=== PATIENT | male | born 2000 | race Caucasian/White ===

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

== ENCOUNTER 2020-10-28 09:07 | Emergency (ER) | payer OTHER, SELFPAY ==
--- NOTE | 2020-10-28 09:25 | HMH.EDUTC ---
[facility] [place] Impression: Exposure to COVID-19 virus Disposition: Home, Self-Care Condition on Discharge: Good Instructions: Preventing the Spread of Coronavirus Discharge Instructions Additional Instructions: Drink plenty of fluids. Take tylenol for pain or fever. Return if you begin to have difficulty breathing. Follow up with your regular doctor. GO TO THE ER FOR ANY WORSENING SYMPTOMS Referrals: Gilberto Camacho MD [Primary Care Provider] - Time of Disposition: 09:26 Medical Decision Making - Medical Records Medical records reviewed: No: I reviewed the patient's medical records. - Elmer Inquiry Pt receiving controlled substance: No Vital Signs: 10/28/20 09:33 10/28/20 09:43 Temperature 98 F 98.2 F Temperature Source Oral Oral Pulse Rate 74 Pulse Rate [Right] 71 Respiratory Rate 16 16 Blood Pressure 115/64 Blood Pressure [Right Arm] 110/50 L Blood Pressure Mean [Right Arm] 70 Blood Pressure Source Automatic Cuff Blood Pressure Source [Right Arm] Automatic Cuff Blood Pressure Position Sitting Blood Pressure Position [Right Arm] Sitting 02 Sat by Pulse Oximetry 98 Oxygen Delivery Method Room Air Room Air Orders (Tests/Meds): ORDERS Category Date Time Status Covid-19 Nasal PCR ([facility]) Routine Lab 10/28/20 09:13 Ordered [facility] [place] - General Stated complaint: Covid exposure Time Seen by Provider: 10/28/20 09:25 - History of Present Illness Provider Complaint: He was exposed to covid by a friend several days ago. He denies any symptoms. - Related Data Previous Rx's Medication Instructions Recorded triamcinolone acetonide 0.5 % 1 applic TOPICAL BID 7 Days #15 g 03/17/19 topical cream Allergies Allergy/AdvReac Type Severity Reaction Status Date / Time No Known Allergies Allergy Unverified 03/17/19 12:38 [facility] History - Hepatitis A Screen Attestation statement:: This patient has been screened for Hepatitis A risk factors. I have reviewed the patient's past medical history: Yes Other Surgeries: Yes: No Previous Surgery Amputation: No Fractures: No - Social History Smoking Status: Never smoker Alcohol Intake: never Substance Use Type: denies use Occupational Status: employed Housing: house Household Members: family Family Hx:: No significant family history ROS Obtained: Yes All systems reviewed & no additional complaints - Constitutional Constitutional: Reports system reviewed and no additional complaints, except as docu - Eyes Eyes: Reports system reviewed and no additional complaints, except as docu - ENT Ears, Nose, Mouth, and Throat: Reports system reviewed and no additional complaints, except as docu - Cardiovascular Cardiovascular: Reports system reviewed and no additional complaints, except as docu - Respiratory Respiratory: Yes system reviewed and no additional complaints, except as docu - Gastrointestinal Gastrointestingal: Reports: system reviewed and no additional complaints, except as docu Physical Exam - General General appearance: alert, in no apparent distress - Head Head exam: atraumatic, normocephalic, normal inspection - Eye Eye exam: Present: normal appearance, PERRL, EOMI - ENT ENT exam: Present: normal exam, normal oropharynx, mucous membranes moist, TM's normal bilaterally, normal external ear exam - Neck Neck exam: Present: normal inspection, full ROM, trachea midline. Absent: meningismus, lymphadenopathy - Chest Chest inspection: Present: normal inspection, symmetric chest wall rise. Absent: tenderness - Respiratory Respiratory exam: Present: normal lung sounds bilaterally. Absent: respiratory distress - Cardiovascular Cardiovascular exam: Present: regular rate, normal rhythm. Absent: JVD - Abdominal Exam Abdominal exam: Present: soft, normal bowel sounds. Absent: distention, tenderness, guarding - Extremities Exam Extremities exam: Present: normal inspecti
[2020-10-28 09:33] VITALS: BP 110/50; PULSE 71; RESP 16; TEMP 36.6; O2SAT 98; BMI 20.9
[2020-10-28 09:43] VITALS: BP 115/64; PULSE 74; RESP 16; TEMP 36.8; O2SAT 98
== END 2020-10-28 09:44 | disposition home or self-care (01) ==
PROVIDERS: Emergency Provider Nurse Practitioner Family; PCP Internal Medicine Adolescent Medicine
DX: Z20.828 Contact with and (suspected) exposure to other viral communicable diseases (principal)
CPT/HCPCS: 99201; U0003

== ENCOUNTER 2020-11-12 15:13 | Emergency (ER) | payer OTHER, SELFPAY ==
[2020-11-12 15:21] VITALS: BP 122/73; PULSE 60; RESP 19; TEMP 36.6; O2SAT 98; BMI 21.3
--- NOTE | 2020-11-12 15:27 | HMH.EDUTC ---
[facility] [place] Impression: Exposure to COVID-19 virus Disposition: Home, Self-Care Condition on Discharge: Good Instructions: Preventing the Spread of Coronavirus Discharge Instructions Additional Instructions: *Monitor Temp, Over the counter Motrin or Tylenol as directed/as needed Tylenol every 4 hours and Motrin every 6 hours (as long as your family doctor has told you that you can take it) for fever or pain. and straight to ER if unable to lower temp less than 101.0 after medication given *Warm salt water gargles may help to soothe the throat *Throat Lozenges *Warm fluids like tea with honey may help to soothe the throat *Sleep elevated *Humidifier/Vaporizer Follow up IMMEDIATELY for new or worsening symptoms or no Noticeable improvement over the next 48-72 hours. 911 for difficulty breathing or swallowing You were tested for today for COVID19 your test result should be back in the next 24-48 hours, you may call to the [facility] to see if your test results are back in the next 48 hours [phone] [facility] hours are 9am-9pm You was given a handout with instructions for Self Quarantine and Self isolation for while you wait on test results and what to do if they are positive If you are positive the Health Dept will be contacting you also Referrals: Gilberto Camacho MD [Primary Care Provider] - As needed Forms: Work/School Release Time of Disposition: 15:30 Medical Decision Making - Elmer Inquiry Pt receiving controlled substance: No Elmer was queried for this patient: No Vital Signs: 11/12/20 15:21 Temperature 97.8 F Temperature Source Oral Pulse Rate [Radial] 60 Respiratory Rate 19 Blood Pressure [Right Arm] 122/73 Blood Pressure Mean [Right Arm] 89 Blood Pressure Source [Right Arm] Automatic Cuff Blood Pressure Position [Right Arm] Sitting 02 Sat by Pulse Oximetry 98 Oxygen Delivery Method Room Air Orders (Tests/Meds): ORDERS Category Date Time Status Covid-19 Nasal PCR [facility] Stat Lab 11/12/20 15:19 [place] [facility] [place] - General Stated complaint: covid test Time Seen by Provider: 11/12/20 15:27 Mode of Arrival: Ambulatory Source of Information: Patient Limitations: No Limitations Description of Symptoms (Recalled from Triage Doc. by RN): covid test HEENT Symptoms (Recalled from RN notes): No Resp Symptoms (Recalled from RN notes): No Skin Symptoms (Recalled from RN notes): No MS Symptoms (Recalled from RN notes): No Functional Status (Recalled from RN notes): wnl - History of Present Illness Provider Complaint: Patient state that he lives with his sister and she recently tested positive for COVID States that he is not having any symtpoms but wanted to come in and get checked and tested for COVID - Related Data Previous Rx's Medication Instructions Recorded triamcinolone acetonide 0.5 % 1 applic TOPICAL BID 7 Days #15 g 03/17/19 topical cream Allergies Allergy/AdvReac Type Severity Reaction Status Date / Time No Known Allergies Allergy Unverified 03/17/19 12:38 - Worker's Comp Is this a Worker's Comp case?: No [facility] History - Hepatitis A Screen Drug use history?: No High risk sexual behaviors?: No History of sexually transmitted infection?: No Currently employed?: No Childcare worker?: No Do you have indoor plumbing?: Yes Do you have electricity?: Yes Attestation statement:: This patient has been screened for Hepatitis A risk factors. I have reviewed the patient's past medical history: Yes Other Surgeries: Yes: No Previous Surgery Amputation: No Fractures: No - Social History Smoking Status: Never smoker Alcohol Intake: never Substance Use Type: denies use Occupational Status: employed Housing: house Household Members: family Family Hx:: No significant family history ROS Obtained: Yes All systems reviewed & no additional complaints, Yes Systems reviewed as appropriate & no additional complaints - Constitutional Constitutional: Reports
[2020-11-12 15:35] VITALS: BP 122/73; PULSE 60; RESP 19; TEMP 36.6; O2SAT 100
[2020-11-14 09:47] LABS: Covid-19 Nasal PCR Sendout UK Not Detected
== END 2020-11-12 15:35 | disposition home or self-care (01) ==
PROVIDERS: Emergency Provider Nurse Practitioner; PCP Internal Medicine Adolescent Medicine
DX: Z20.828 Contact with and (suspected) exposure to other viral communicable diseases (principal)
CPT/HCPCS: 99201; U0003

== ENCOUNTER 2021-07-25 20:45 | Emergency (ER) | payer OTHER, SELFPAY ==
[2021-07-25 21:10] VITALS: BP 122/74; PULSE 80; RESP 14; TEMP 36.9; O2SAT 97; BMI 20.3
[2021-07-25 21:18] VITALS: BP 122/74; PULSE 88; RESP 14; TEMP 36.8
--- NOTE | 2021-07-25 21:44 | HMH.EDUTC ---
[facility] [place] Disposition Clinical Impression: Chest wall pain, Viral syndrome Disposition: Home, Self-Care Condition on Discharge: Good Instructions: DI for Atypical Chest Pain, DI for Viral Syndrome Additional Instructions: Drink plenty of fluids. Take the medication as directed. Return if you begin to have difficulty breathing or worsening symptoms. Continue to Follow up with your regular doctor. GO TO THE ER FOR ANY WORSENING SYMPTOMS Quarantine until you know the results of your covid-19 test. If it is positive, the health department should call you and give you further instructions about your length of Quarantine and other things. Notify your school or workplace of your results and follow their instructions regarding return to work/school. Prescriptions: predniSONE [Prednisone 20mg Tab] 20 mg PO BID 4 Days #8 tab Transmission Status: Received by [id number] Referrals: Gilberto Camacho MD [Primary Care Provider] - Forms: Work/School Release Time of Disposition: 21:46 Medical Decision Making - Medical Records Medical records reviewed: No: I reviewed the patient's medical records. - Elmer Inquiry Pt receiving controlled substance: No Vital Signs: 07/25/21 21:10 07/25/21 21:18 Temperature 98.5 F 98.2 F Temperature Source Oral Pulse Rate 88 Pulse Rate [Left] 80 Respiratory Rate 14 14 Blood Pressure 122/74 Blood Pressure [Right Arm] 122/74 Blood Pressure Mean [Right Arm] 90 02 Sat by Pulse Oximetry 97 Orders (Tests/Meds): ORDERS Category Date Time Status Covid-19 Nasal PCR ([facility]) Routine Lab 07/25/21 21:10 Received [facility] [place] HPI - General Stated complaint: covid test Time Seen by Provider: 07/25/21 21:15 Mode of Arrival: Ambulatory Source of Information: Patient Limitations: No Limitations Description of Symptoms (Recalled from Triage Doc. by RN): pt c/o back ache, fever, soa, and soreness of the chest. HEENT Symptoms (Recalled from RN notes): No Resp Symptoms (Recalled from RN notes): Yes (soa and tightness in his lungs) Skin Symptoms (Recalled from RN notes): No MS Symptoms (Recalled from RN notes): No Functional Status (Recalled from RN notes): na - History of Present Illness Provider Complaint: He states that he has had an area on his left chest that has hurt and been tender to touch at times for the past 2 weeks or so. He denies any known injury. He also states that for the past 2 days he has felt very tired so he would like a covid test. - Related Data Previous Rx's Medication Instructions Recorded triamcinolone acetonide 0.5 % 1 applic TOPICAL BID 7 Days #15 g 03/17/19 topical cream predniSONE [Prednisone 20mg 20 mg PO BID 4 Days #8 tab 07/25/21 Tab] Allergies Allergy/AdvReac Type Severity Reaction Status Date / Time No Known Allergies Allergy Unverified 03/17/19 12:38 - Worker's Comp Is this a Worker's Comp case?: No [facility] History - Hepatitis A Screen Drug use history?: No High risk sexual behaviors?: No History of sexually transmitted infection?: No Currently employed?: No Childcare worker?: No Do you have indoor plumbing?: Yes Do you have electricity?: Yes Attestation statement:: This patient has been screened for Hepatitis A risk factors. I have reviewed the patient's past medical history: Yes Other Surgeries: Yes: No Previous Surgery Amputation: No Fractures: No - Social History Smoking Status: Never smoker Alcohol Intake: never Substance Use Type: denies use Occupational Status: employed Housing: house Household Members: family Family Hx:: No significant family history ROS Obtained: Yes All systems reviewed & no additional complaints - Constitutional Constitutional: Denies chills, Denies fever(s) - Eyes Eyes: Denies eye discharge - ENT Ears, Nose, Mouth, and Throat: Denies dizziness, Denies otalgia, Denies sore throat - Cardiovascular Cardiovascular: Reports as per HPI, Reports chest
== END 2021-07-25 21:55 | disposition home or self-care (01) ==
PROVIDERS: Emergency Provider Nurse Practitioner Family; PCP Internal Medicine Adolescent Medicine
DX: R07.89 Other chest pain (principal); B34.9 Viral infection, unspecified; Z20.822 Contact with and (suspected) exposure to COVID-19
CPT/HCPCS: 99202; G0463; U0003

== ENCOUNTER → 2021-08-23 09:34 | Outpatient (CLI) | payer OTHER, SELFPAY ==
[2021-08-23 09:56] LABS: Basophils # 0.1 K/mm3 (0-0.2); Basophils % 1.7 % (0.1-2.0); Eosinophils # 0.2 K/mm3 (0.0-0.4); Eosinophils % 4.3 % (0.1-12.0); Hematocrit 47.9 % (42.0-52.0); Hemoglobin 15.9 g/dL (14.1-18.0); Lymphocytes # 1.7 K/mm3 (0.7-4.5); Lymphocytes % 34.2 % (10-50); Mean Corpuscular HGB Conc 33.2 g/dL (31.8-35.4); Mean Corpuscular Hemoglobin 30.2 pg (27.0-31.2); Mean Corpuscular Volume 90.8 fl (80-94); Mean Platelet Volume 7.4 fl (7.4-10.4); Monocytes # 0.4 K/mm3 (0.1-1.0); Monocytes % 7.7 % (1.7-9.3); Neutrophils # 2.5 K/mm3 (1.8-7.8); Neutrophils % 52.1 % (37.0-80.0); Platelet Count 280 K/mm3 (142-424); Red Blood Count 5.28 M/mm3 (4.60-6.20); Red Cell Distribution Width 13.4 % (11.5-17.5); White Blood Count 4.9 K/mm3 (4.8-10.8)
[2021-08-23 10:55] LABS: Chloride 101 mmol/L (98-107)
[2021-08-23 10:56] LABS: Potassium 4.8 mmoL/L (3.5-5.1); Sodium 142 mmol/L (136-145)
[2021-08-23 10:58] LABS: Alanine Aminotransferase 20 U/L (12-78); Anion Gap 15.8 mEq/L (5-15); Aspartate Amino Transferase 29 U/L (17-59); Blood Urea Nitrogen 15 mg/dl (9-20); Carbon Dioxide 30 mmol/L (22.0-30.0); Estimated Glomerular Filt Rate 106 ml/min (>60); GFR (African American) 128 ML/MIN (>60)
[2021-08-23 10:59] LABS: Albumin Level 5.1 g/dl (3.5-5.0); Alkaline Phosphatase 68 U/L (38-126); Chol/HDL Ratio 2.1 (1-3.5); Cholesterol 143 mg/dl (140-200); Glucose 97 mg/dl (74-100); HDL Cholesterol 68 mg/dl (40-60); Triglycerides 83 mg/dl (30-150); VLDL Cholesterol 17 mg/dL (0-40)
[2021-08-23 11:10] LABS: Direct LDL Cholesterol 57.89 mg/dL (100-129)
[2021-08-23 11:18] LABS: Free Thyroxine Index 3.2 ug/dL (5.93-13.13); Triiodothryronine (T3) Uptake 29 % (23.5-40.5)
[2021-08-23 11:32] LABS: Thyroid Stimulating Hormone 0.61 uIU/mL (0.465-4.68)
== END ==
PROVIDERS: Visit Provider Urology
DX: R06.00 Dyspnea, unspecified (principal); R07.89 Other chest pain; R94.31 Abnormal electrocardiogram [ECG] [EKG]
CPT/HCPCS: 36415; 80048; 80061; 80076; 84436; 84443; 84479; 85025

== ENCOUNTER → 2021-08-30 07:53 | Outpatient (CLI) | payer OTHER, SELFPAY ==
--- NOTE | 2021-08-30 07:55 | CA_ITS ---
APPROVED REPORT EXAM: Comprehensive 2D, Doppler, and color-flow Echocardiogram Radiochemical Technician: Connie Jones CRT Ht: 5 ft 6 in Wt: 125lbs BSA: 1.64 BP: 124/81 mmHg Indications: Chest Pain, Shortness of Breath 2D Dimensions LVOT 1.88 cm (M/F) 1.5-2.5 LA Volume 18.30 mL LA Volume Index 11.20 mL/m2 (M/F) 16-34 M-Mode Dimensions RVDd 2.62 cm (0.9-2.6) LA Diam 2.43 cm (1.9-4.0) LVDd 4.31 cm (3.5-5.7) Ao Diam 3.38 cm (2.0-3.7) LVDs 2.94 cm (3.5-5.7) IVSd 1.02 cm (0.6-1.1) PWd 0.88 cm (0.6-1.1) EF (Teich) 60.10% FS 31.80% EDV (Teich) 83.50 mL ESV (Teich) 33.30 mL LV Diastology E Decel Time 200.00 (160-240 msec) E/A Ratio 1.24 Aortic Valve AO Peak GR. 6.90 mmHg Mitral Valve MV E Max Scottie. 98.00 (40-130 cm/s) MV A Velocity 79.00 (40-130 cm/s) E/A Ratio 1.24 MV Decel. Time 200.00 (160-240 ms) MV PHT 59.00 ms Pulmonary Valve PV Peak Velocity 123.00 (50-150 cm/s) Tricuspid Valve TR P. Velocity 188.00 cm/s RAP Estimate 10.00 mmHg RVSP 24.10 mmHg Left Ventricle Left atrium is normal size, left ventricle is normal size, there is no concentric left ventricular hypertrophy, visually estimated ejection fraction 55% with no regional wall motion abnormality, diastolic parameters within normal range, there is no tissue Doppler performed. Right Ventricle Right atrium and right ventricle are normal size and contractility. Aortic Valve Aortic valve is grossly normal, there is no aortic stenosis or aortic insufficiency. Mitral Valve Mitral valve is grossly normal, there is trace mitral regurgitation. Tricuspid Valve Tricuspid valve grossly normal, there is trace tricuspid regurgitation, tricuspid regurgitation jet velocity is inadequate for calculation of the right ventricular systolic pressure. Pulmonic Valve Pulmonic valve is poorly visualized. Great Vessels Aortic root is normal size. Inferior vena cava is normal size with normal inspiratory collapse. Pericardium No significant pericardial effusion noted. Conclusion 1. Normal left ventricular size, preserved left ventricular systolic function, visually estimated ejection fraction 55% with no regional wall motion abnormality, diastolic parameters are within normal range. 2. Trace mitral and tricuspid regurgitation. 3. No significant pericardial effusion noted. Electronically signed by : Avi Go MD 08/31/2021 13:19:11
--- NOTE | 2021-08-30 07:55 | CA_ITS ---
APPROVED REPORT Exam: Exercise Treadmill Technologist: Sujey Mccoy, Ht: 5 ft 6 in Wt: 124 lbs BSA: 1.63 m2 HR: 71 bpm BP: 126/76 mmHg Medical History Medications: Pantoprazole,,,,, TriaMcinalone Acetonide,,,,, Stress Test Details Test: Kenny HR Resting HR: 81 bpm Max Heart Rate (APMHR): 198.096907 bpm Max HR Achieved: 183 bpm Target HR (85% APMHR): 168.308698 bpm % of APMHR: 92.42 Recovery HR: 110 bpm BP Resting BP: 139/86 mmHg Max BP: 180/87 mmHg Recovery BP: 151.0/85.0 mmHg ECG Resting ECG: NSR, early repolarization changes, voltage criteria for LVH Clinical Exercise duration: 13:03 min Highest Stage Achieved: Exercise capacity: 14.8 METs Stress ECG Conclusion Exercised 13:03 on Kenny Protocol Max HR: 183 % of PM: 92% Max BP: 180/87 METs: 14.8 Test stopped due to: SOA, Fatigue Symptoms: SOA, mild chest discomfort. Arrythmias/Ectopy: None. ST-T Changes: within vikram ST response to exercise. Conclusion: Normal GXT. GXT only (no imaging). Test Summary REST . . . . . . . Sitting REST . . . . . . . Standing REST 03:32 0.0 0.0 81 . 139/ 86 . . Stage 1 01:00 10.0 1.7 92 . . . . Stage 1 02:00 10.0 1.7 101 . . . . Stage 1 03:00 10.0 1.7 97 . 116/ 70 . . Stage 2 01:00 12.0 2.5 97 . . . . Stage 2 02:00 12.0 2.5 109 . . . . Stage 2 03:00 12.0 2.5 105 . 116/ 60 . . Stage 3 01:00 14.0 3.4 117 . . . . Stage 3 02:00 14.0 3.4 119 . . . . Stage 3 03:00 14.0 3.4 121 . 134/ 60 . . Stage 4 01:00 16.0 4.2 138 . . . . Stage 4 02:00 16.0 4.2 156 . . . . Stage 4 03:00 16.0 4.2 170 . . . . Stage 5 01:00 18.0 5.0 181 . . . . Stage 5 01:03 18.0 5.0 182 . . . Stop exercise at 13:03 RECOVERY 01:00 0.0 0.0 154 . . . . RECOVERY 02:00 0.0 0.0 137 . 168/ 80 . . RECOVERY 03:00 0.0 0.0 134 . 180/ 87 . . RECOVERY 04:00 0.0 0.0 119 . 176/ 89 . . RECOVERY 05:00 0.0 0.0 118 . 176/ 89 . . RECOVERY 06:00 0.0 0.0 118 . 164/ 87 . . RECOVERY 07:00 0.0 0.0 110 . 164/ 87 . . RECOVERY 08:00 0.0 0.0 116 . 164/ 87 . . RECOVERY 08:22 0.0 0.0 110 . 164/ 87 . . Electronically signed by : Avi Go MD 08/31/2021 10:18:43
--- NOTE | 2021-08-30 09:06 | US_ITS ---
PROCEDURE: US THYROID CLINICAL INDICATION: dyspnea, chest pain COMPARISON: No exams were available for comparison FINDINGS: Right lobe: 4.5 x 1.6 x 1.9 cm. Homogeneous echogenicity. No discrete nodule. Left lobe: 4.1 x 1.2 x 1.5 cm. Homogeneous echogenicity. No discrete nodule. Isthmus: Unremarkable Additional findings: IMPRESSION: Unremarkable thyroid ultrasound Dictated by: Tramaine Wilson MD 08/30/2021 17:37 Tramaine Wilson MD in [place] 08/30/2021 17:37
== END ==
PROVIDERS: PCP Internal Medicine Adolescent Medicine; Visit Provider Urology
DX: R06.00 Dyspnea, unspecified (principal); R07.89 Other chest pain; R94.31 Abnormal electrocardiogram [ECG] [EKG]
CPT/HCPCS: 76536; 93017; 93306

== ENCOUNTER → 2021-09-20 07:21 | Outpatient (CLI) | payer OTHER, SELFPAY ==
--- NOTE | 2021-09-20 07:22 | CT_ITS ---
PROCEDURE: CT ANGIO CORONARY ARTERY CLINCAL INDICATION: chest pain COMPARISON: No exams were available for comparison TECHNIQUE: IV Contrast: 75ml Isovue 370 Prospectively gated helical imaging performed following the intravenous bolus administration of 85 mL Isovue 370 and sublingual nitroglycerin. Helical images obtained with 3D reformat images as well as curved planar reformatted images. FINDINGS: Images are deemed to be adequate. There was some minimal motion artifact which was nearly completely eliminated with post processing. The origin of the coronary arteries is normal. No evidence of malignant course of any of the coronary arteries. The left main has an unremarkable appearance. LAD common diagonals obtuse marginal and circumflex have an unremarkable appearance. The RCA has an unremarkable appearance. Acute marginal and posterior lateral branch to the left ventricle unremarkable. The PDA is a very small vessel. The septum is mainly supplied by the LAD. No myocardial bridging. No significant stenotic lesions or plaque apparent. The RV/LV ratio is greater than 1. The inferior vena cava is also enlarged. There is evidence of old granulomatous disease. IMPRESSION: Negative CTA of the coronary arteries. Cardiomegaly with RV/LV ratio greater than 1. The right atrium and right ventricle are somewhat prominent in there is prominence of the inferior vena cava. Right heart disease is considered. Please correlate with clinical parameters. Dictated by: Tramaine Wilson MD 09/22/2021 13:46 Tramaine Wilson MD in [place] 09/22/2021 13:46
[2021-09-20 08:48] VITALS: BMI 21.9
[2021-09-20 08:55] VITALS: BP 105/67; PULSE 70; RESP 18; TEMP 36.1; O2SAT 96
[2021-09-20 09:10] VITALS: BP 110/71; PULSE 66; RESP 18; O2SAT 98
[2021-09-20 09:15] VITALS: BP 106/67; PULSE 64; RESP 18; O2SAT 98
[2021-09-20 10:14] LABS: Alanine Aminotransferase 18 U/L (12-78); Albumin Level 4.2 g/dl (3.5-5.0); Alkaline Phosphatase 60 U/L (38-126); Aspartate Amino Transferase 26 U/L (17-59); Bilirubin,Direct 0.6 mg/dl (0.0-0.4); Bilirubin,Indirect 0.6 mg/dL (0.0-0.9); Bilirubin,Total 1.2 mg/dl (0.2-1.3); Bilirubin,Unconjugated 0.6 mg/dL (0.0-1.1)
== END ==
LOC: RAD 07:22
PROVIDERS: Urology; PCP Internal Medicine Adolescent Medicine; Visit Provider Internal Medicine Cardiovascular Disease
DX: R07.9 Chest pain, unspecified (principal); E11.9 Type 2 diabetes mellitus without complications
CPT/HCPCS: 75574; 80076; Q9967

== ENCOUNTER → 2021-10-19 12:19 | Outpatient (CLI) | payer OTHER, SELFPAY | PROVIDERS: PCP Internal Medicine Adolescent Medicine; Visit Provider Nurse Practitioner | DX: U07.1 COVID-19 (principal) | CPT/HCPCS: C9803; U0003; U0005 ==

== ENCOUNTER → 2022-05-23 09:53 | Outpatient (CLI) | payer BC, SELFPAY ==
--- NOTE | 2022-05-23 09:53 | US_ITS ---
FINAL REPORT CLINICAL HISTORY: chest pain FINDINGS: Sonographic images of the right upper quadrant were obtained. The pancreas is partially obscured.The liver has an unremarkable appearance. There is a small amount of sludge in the gallbladder. There is a small gallbladder wall polyp versus tumefactive sludge. The gallbladder wall is borderline thickened at 3 mm. There is no biliary ductal dilatation.The common duct measures 2 mm. Limited images of the right kidney are unremarkable. IMPRESSION: Small amount of sludge in the gallbladder. Small gallbladder wall polyp versus tumefactive sludge. Reviewed, Interpreted and Dictated by Renny Varner III, MD Transcribed by Tianna Ramirez Authenticated and [facility]
--- NOTE | 2022-05-23 09:53 | CT_ITS ---
FINAL REPORT TECHNIQUE: Then section axial CT images of the chest were obtained with contrast. Three-D reformatted images were also obtained.This study was performed with techniques to keep radiation doses as low as reasonably achievable (ALARA). Individualized dose reduction techniques using automated exposure control or adjustment of mA and/or kV according to the patient''s size were employed. CLINICAL HISTORY: chest pain, increased RV/LV ratio on coronary CTA FINDINGS: There is no evidence of pulmonary embolism. There is no evidence of thoracic aortic aneurysm or dissection. There is anterior mediastinal soft tissue which likely represents residual thymus. There are calcified mediastinal nodes consistent with prior granulomatous disease. There is no evidence of pulmonary mass or suspicious nodule. No localized inflammatory process is seen within the lungs. The RV/LV ratio is 0.86, within normal limits. There is mild dependent atelectasis. Limited images of the upper abdomen are unremarkable. IMPRESSION: 1. No evidence of pulmonary embolism. 2. No mass or localized inflammatory process. Reviewed, Interpreted and Dictated by Renny Varner III, MD Transcribed by Miya Fernandez Authenticated and . [facility]
== END ==
LOC: RAD 09:53
PROVIDERS: PCP Internal Medicine Adolescent Medicine; Visit Provider Physician Assistant
DX: R07.89 Other chest pain (principal); K21.9 Gastro-esophageal reflux disease without esophagitis
CPT/HCPCS: 71275; 76705; Q9967

== ENCOUNTER 2022-06-18 09:25 | Emergency (ER) | payer BC, SELFPAY ==
[2022-06-18 09:40] VITALS: BP 131/72; PULSE 89; RESP 19; TEMP 37.1; O2SAT 97; BMI 24.7
[2022-06-18 09:53] LABS: UTC Strep Screen (Rapid) Positive (Negative)
[2022-06-18 09:55] VITALS: BP 131/72; PULSE 89; RESP 19; TEMP 37.1; O2SAT 97
--- NOTE | 2022-06-18 09:58 | HMH.EDUTC ---
[facility] [place] Clinical Impression: Strep throat Disposition: Home, Self-Care Condition on Discharge: Good Instructions: Strep Throat, DI for Strep Throat Additional Instructions: *Monitor Temp, Over the counter Motrin or Tylenol as directed/as needed Tylenol every 4 hours and Motrin every 6 hours (as long as your family doctor has told you that you can take it) for fever or pain. and straight to ER if unable to lower temp less than 101.0 after medication given *Warm salt water gargles may help to soothe the throat *Throat Lozenges *Warm fluids like tea with honey may help to soothe the throat *Sleep elevated *Humidifier/Vaporizer *If you did not take Penicillin shot or was unable to, start taking antibiotic immediately and make sure that you take it for the FULL length of time although you should start to feel better in 24-48 hours *change toothbrush and toothpaste 24-48 hours after starting to take antibiotics so you do not reinfect yourself Monitor Temp. Tylenol and/or Ibuprofen as needed. ER if fever is no less than 101 despite alternating Tylenol and Ibuprofen * Encourage fluids, water, Gatorade, powerade, pedialyte if infant/toddler/or child *Cold fluids, popsicles and ice cream may feel good on his throat Follow up IMMEDIATELY for new or worsening symptoms or no Noticeable improvement over the next 48-72 hours. 911 for difficulty breathing or swallowing Prescriptions: Amoxicillin [Amoxicillin 500mg Cap] 500 mg PO BID 10 Days #20 cap Transmission Status: Pending to [facility] methylPREDNISolone [Medrol 4mg tab] 4 mg PO DIRECTED #21 tab Transmission Status: Pending to [facility] Referrals: Gilberto Camacho MD [Primary Care Provider] - As needed Forms: Work/School Release Time of Disposition: 10:01 Medical Decision Making - Elmer Inquiry Pt receiving controlled substance: No Elmer was queried for this patient: No Vital Signs: 06/18/22 09:40 06/18/22 09:55 Temperature 98.7 F 98.7 F Temperature Source Oral Pulse Rate 89 Pulse Rate [Right Brachial] 89 Respiratory Rate 19 19 Blood Pressure 131/72 Blood Pressure [Right Arm] 131/72 Blood Pressure Mean [Right Arm] 91 Blood Pressure Source [Right Arm] Automatic Cuff Blood Pressure Position [Right Arm] Sitting 02 Sat by Pulse Oximetry 97 Oxygen Delivery Method Room Air - Lab Data Lab results reviewed: Yes: I reviewed the patient's lab results. Lab Results 06/18/22 09:53: Strep Scn Rapid Clinic Positive A Orders (Tests/Meds): ORDERS Category Date Time Status Rapid Strep Scrn Group A [Strep Scrn Group A (Rapid)] Lab 06/18/22 09:44 Stop Req Stat [facility] [place] - General Stated complaint: Sore throat Time Seen by Provider: 06/18/22 09:58 Mode of Arrival: Ambulatory Source of Information: Patient Limitations: No Limitations Description of Symptoms (Recalled from Triage Doc. by RN): PATIENT C/O SORE THROAT AND HOT FLASHES X 2 DAYS HEENT Symptoms (Recalled from RN notes): Yes Resp Symptoms (Recalled from RN notes): No Skin Symptoms (Recalled from RN notes): No MS Symptoms (Recalled from RN notes): No Functional Status (Recalled from RN notes): WNL - History of Present Illness Provider Complaint: Patient states that he has been having sore throat and feeling like he has had hot flashes for 2 days and has continued to get worse States that today his throat looked really swollen and white patches on it so he came in - Related Data Home Medications Medication Instructions Recorded Confirmed famotidine 20 mg tablet 20 mg PO BID 05/16/22 06/18/22 Previous Rx's Medication Instructions Recorded Amoxicillin [Amoxicillin 500mg 500 mg PO BID 10 Days #20 cap 06/18/22 Cap] methylPREDNISolone [Medrol 4mg 4 mg PO DIRECTED #21 tab 06/18/22 tab] Allergies Allergy/AdvReac Type Severity Reaction Status Date / Time No Known Allergies Allergy Verified 05/16/22 09:47 - Worker
== END 2022-06-18 10:07 | disposition home or self-care (01) ==
PROVIDERS: Emergency Provider Nurse Practitioner; PCP Internal Medicine Adolescent Medicine
DX: J02.0 Streptococcal pharyngitis (principal)
CPT/HCPCS: 87880; 99212; G0463

== ENCOUNTER 2022-08-15 16:28 | Emergency (ER) | payer BC, SELFPAY ==
--- NOTE | 2022-08-15 17:07 | EXP.UTC ---
Discharge Plan Disposition Patient Disposition: Home, Self-Care Condition: Good Prescriptions Prescriptions: New methylprednisolone 4 mg Tablets,Dose Pack 4 mg PO DIRECTED Qty: 21 0RF gxqzxbtqurijvke-qjabiqmjf-HU [Bromfed DM] 2-30-10 mg/5 mL Syrup 5 ml PO Q6H PRN (Reason: Cough) Qty: 240 0RF amoxicillin-pot clavulanate 875-125 mg Tablet 1 tab PO Q12H Qty: 20 0RF No Action famotidine 20 mg tablet 20 mg PO BID amoxicillin 500 MG capsule 500 mg PO BID 10 Days Qty: 20 0RF methylprednisolone 4 MG tablet 4 mg PO DIRECTED Qty: 21 0RF Rx Instructions: Take as directed on package instructions Referrals Follow up/Referrals: Gilberto Camacho MD [Primary Care Provider] - See instructions Activity Restrictions/Add. Instructions Additional Instructions/Restrictions: Drink plenty of fluids. Take tylenol or ibuprofen for pain or fever. Take the medications as directed. Follow up with your regular doctor. GO TO THE ER FOR ANY WORSENING SYMPTOMS Throw your tooth brush away and get a new one. Clinical Impressions Clinical Impression: Strep throat Instructions Patient Instructions: Strep Throat, DI for Strep Throat Discharge ED Provider: Amauir Quispe [facility] General Stated complaint: sore throat Time Seen by Provider: 08/15/22 17:06 History of Present Illness Provider Complaint: he c/o sore throat for the past 2 days . Related Data Home Medications Medication Instructions Recorded Confirmed famotidine 20 mg tablet 20 mg PO BID GERD 05/16/22 06/18/22 Previous Rx's Medication Instructions Recorded amoxicillin 500 mg capsule 500 mg PO BID 10 days #20 caps 06/18/22 methylprednisolone 4 mg tablet 4 mg PO DIRECTED #21 tabs 06/18/22 amoxicillin 875 mg-potassium 1 tab PO Q12H #20 tabs 08/15/22 clavulanate 125 mg tablet xlzyaolukofppzl-rncouxpgenlgtfy-YK 5 ml PO Q6H PRN Cough #240 mL 08/15/22 2 mg-30 mg-10 mg/5 mL oral syrup (Bromfed DM) methylprednisolone 4 mg tablets in 4 mg PO DIRECTED #21 tabs 08/15/22 a dose pack Allergies Allergy/AdvReac Type Severity Reaction Status Date / Time No Known Allergies Allergy Verified 08/15/22 17:17 [facility] Medical History Abnormal electrocardiography Chest pain Dyspnea Gastroesophageal reflux disease Knot in throat Social History Smoking Status: Current every day smoker tobacco type: e-cigarettes alcohol intake: never substance use type: denies use current occupational status: other Travel in the last 8 weeks: None household members: family and friend(s) housing: house current occupation: [employer] current occupational exposures/hazards: No caffeine: Yes ROS Obtained: Yes All systems reviewed & no additional complaints except as documented Constitutional Constitutional: Reports chills and Reports fever(s) Eyes Eyes: Denies eye discharge ENT Ears, Nose, Mouth, and Throat: Reports as per HPI Cardiovascular Cardiovascular: Denies chest pain Respiratory Respiratory: Denies chest congestion and Reports cough Gastrointestinal Gastrointestingal: Reports nausea; Denies abdominal pain, constipation, cramping, diarrhea or vomiting Musculoskeletal Musculoskeletal: Denies arthralgias Integumentary/Breasts Skin/Breast: Denies rash Neurologic Neurologic: Denies paresthesias Physical Exam General General appearance: alert and in no apparent distress Head Head exam: atraumatic, normocephalic and normal inspection Eye Eye exam: Present normal appearance, PERRL and EOMI ENT ENT exam: Present mucous membranes moist and normal external ear exam Expanded ENT Exam TM/Canal exam: Bilateral TM: erythema and bulging Nose exam: Absent sinus tenderness Mouth exam: Present normal external inspection; Absent drooling Teeth exam: Present normal inspection Throat exam: Present
[2022-08-15 17:10] VITALS: BP 138/69; PULSE 83; RESP 17; TEMP 36.8; O2SAT 97; BMI 25.0
[2022-08-15 17:13] LABS: UTC Strep Screen (Rapid) Negative (Negative)
[2022-08-15 17:33] VITALS: BP 138/69; PULSE 83; RESP 17; TEMP 36.8
== END 2022-08-15 17:34 | disposition home or self-care (01) ==
PROVIDERS: Emergency Provider Nurse Practitioner Family; PCP Internal Medicine Adolescent Medicine
DX: J02.0 Streptococcal pharyngitis (principal)
CPT/HCPCS: 87880; 99212; G0463

== ENCOUNTER → 2022-12-10 11:56 | Outpatient (CLI) | payer BC, SELFPAY | PROVIDERS: PCP Student in an Organized Health Care Education/Training Program; Visit Provider Student in an Organized Health Care Education/Training Program | DX: J02.9 Acute pharyngitis, unspecified (principal) | CPT/HCPCS: 87070 ==

== ENCOUNTER → 2023-03-06 15:39 | Outpatient (CLI) | payer BC, SELFPAY ==
--- NOTE | 2023-03-06 15:43 | XR_ITS ---
FINAL REPORT CLINICAL HISTORY: cp, dyspnea FINDINGS: TWO-VIEW CHEST The heart size is normal. The mediastinum is normal. The lungs are clear. There is no pneumothorax. IMPRESSION: No acute cardiopulmonary process. Reviewed, Interpreted and Dictated by Nixon Giang MD Transcribed by Lori Palomo Authenticated and [facility]
== END ==
PROVIDERS: PCP Internal Medicine Adolescent Medicine; Visit Provider Physician Assistant
DX: R06.00 Dyspnea, unspecified (principal); R07.89 Other chest pain; K21.9 Gastro-esophageal reflux disease without esophagitis; R94.31 Abnormal electrocardiogram [ECG] [EKG]
CPT/HCPCS: 71046; 93225

== ENCOUNTER 2023-12-08 09:25 | Emergency (ER) | payer BC, SELFPAY ==
[2023-12-08 09:45] VITALS: BP 131/72; PULSE 88; RESP 18; TEMP 36.8; O2SAT 98; BMI 22.4
--- NOTE | 2023-12-08 10:05 | ED_ITS ---
Discharge Plan Disposition Patient Disposition: Home, Self-Care Condition: Good Prescriptions Prescriptions: New amoxicillin-pot clavulanate 875-125 mg Tablet 1 tab PO Q12H 7 Days Qty: 14 0RF fluticasone propionate [Flonase Allergy Relief] 50 mcg/actuation spray,suspension 1 - 2 spray intranasal DAILY Qty: 16 0RF Rx Instructions: administer into each nostril daily guaifenesin [Mucinex] 600 mg tablet extended release 12hr 600 - 1,200 mg PO BID PRN (Reason: cough) Qty: 20 0RF zaxiorxlchvxfpb-gqswbnbsb-IC [Bromfed DM] 2-30-10 mg/5 mL Syrup 10 ml PO Q4H PRN (Reason: Cough) Qty: 118 0RF No Action buspirone 10 mg tablet 10 mg PO BID Qty: 60 1RF Referrals Follow up/Referrals: Gilberto Camacho MD [Primary Care Provider] - See instructions Activity Restrictions/Add. Instructions Additional Instructions/Restrictions: *Monitor Temp, Over the counter Motrin or Tylenol as directed/as needed Tylenol every 4 hours and Motrin every 6 hours (as long as your family doctor has told you that you can take it) for fever or pain. and straight to ER if unable to lower temp less than 101.0 after medication given *Warm salt water gargles may help to soothe the throat *Throat Lozenges? *Warm fluids like tea with honey may help to soothe the throat? *Sleep elevated *Humidifier/Vaporizer *Flonase 2 sprays in each nostril daily but be aware that it may take 2-3 days before you notice improvement Take medication as prescribed Take Bromfed at night to help with cough so you can rest and mucinex during the day Follow up IMMEDIATELY for new or worsening symptoms or no Noticeable improvement over the next 48-72 hours. 911 for difficulty breathing or swallowing Clinical Impressions Clinical Impression: Sinusitis Qualifiers: Sinusitis location: unspecified location Chronicity: unspecified Qualified Code (s): J32.9 - Chronic sinusitis, unspecified Instructions Patient Instructions: Sinusitis, DI for Sinusitis Discharge ED Provider: Maria Del Rosario Baird [facility] HPI General Stated complaint: cough, congestion and chills Mode of Arrival: Ambulatory Source of Information: Patient Limitations: No Limitations Time Seen by Provider: 12/08/23 10:05 Description of Symptoms (Recalled from Triage Doc. by RN): PATIENT C/O COUGH, CONGESTION, AND BODY ACHES X 4 DAYS HEENT Symptoms (Recalled from RN notes): Yes Resp Symptoms (Recalled from RN notes): Yes Skin Symptoms (Recalled from RN notes): No MS Symptoms (Recalled from RN notes): No Functional Status (Recalled from RN notes): WNL History of Present Illness Provider Complaint: Patient states that he was sick before New Years and felt better then his friend got sick States that now he is sick again States that for the last 3-4 days he has been having body aches, chills, sinus congestion and pressure and over all not feeling well so today when he was still not feeling any better he came in Related Data Previous Rx's Medication Instructions Recorded buspirone 10 mg tablet 10 mg PO BID #60 tabs 12/06/23 amoxicillin 875 mg-potassium 1 tab PO Q12H 7 days #14 tabs 12/08/23 clavulanate 125 mg tablet patlmnlwvcgqdvp-cheavgirltsansu-ET 10 ml PO Q4H PRN Cough #118 mL 12/08/23 2 mg-30 mg-10 mg/5 mL oral syrup (Bromfed DM) fluticasone propionate 50 1 - 2 spray intranasal DAILY #16 12/08/23 mcg/actuation nasal grams spray,suspension (Flonase Allergy Relief) guaifenesin 600 mg tablet, 600 - 1,200 mg PO BID PRN cough 12/08/23 extended release 12 hr (Mucinex) #20 tabs Allergies Allergy/AdvReac Type Severity Reaction Status Date / Time No Known Allergies Allergy Verified 08/15/23 12:45 Worker's Comp Is this a Worker's Comp case?: No [facility] Disclaimer: The information contained in this section may have been updated after the patient was seen, as this information can be updated by other users. Medical History (Updated 12/08/23 @ 10:16 by Maria Del Rosario Baird APRN) Abnormal electrocardiography Chest pain Dyspnea Gastroesophageal reflux disease Generalized anxiety disorder Knot in throat Surgical History (Updated 12/08/23 @ 09:56 by Silvia Gonsalves RN) H/O wisdom tooth extraction Social History (Updated 08/15/23 @ 09:46 by Talia Zhao APRN) Smoking Status: Former smoker tobacco type: e-cigarettes second hand exposure: No alcohol intake: current counseling given: No substance use type: marijuana counseling given: No current occupational status: employed Travel in the last 8 weeks: None adopted: No caregiver/support person: No foster care: No household members: friend(s) housing: house lives independently: Yes marital status: single number of children: 0 number of grandchildren: 0 education level: college current occupation: [employer] current occupational exposures/hazards: No pets and animals: Yes (2 cats; Tere and Lalo) pets and animals: cat(s) caffeine: Yes physical activity: none working smoke detector in home: Yes fire extinguisher in home: No carbon monox detector in home: Yes firearms in home: No do you feel safe at home: Yes victim of physical abuse: No victim of emotional abuse: No victim of sexual abuse: No would you like helpful sources: No ROS Obtained: Yes All systems reviewed & no additional complaints except as documented and Yes Systems reviewed as appropriate & no additional complaints except as documented Constitutional Constitutional: Reports system reviewed and no additional complaints, except as documented, Reports as per HPI, Reports body ache and Reports chills ENT Ears, Nose, Mouth, and Throat: Reports system reviewed and no additional complaints, except as documented, Reports nasal congestion, Reports sinus pain and Reports sinus pressure Cardiovascular Cardiovascular: Reports system reviewed and no additional complaints, except as documented and Reports as per HPI Respiratory Respiratory: Reports system reviewed and no additional complaints, except as documented and Reports as per HPI Physical Exam General General appearance: alert and in no apparent distress ENT ENT exam: Present mucous membranes moist Expanded ENT Exam TM/Canal exam: Bilateral TM: bulging Nose exam: Present sinus tenderness (reports dark yellowish green mucous) Throat exam: Present normal inspection Respiratory Respiratory exam: Present normal lung sounds bilaterally; Absent respiratory distress or wheezes Cardiovascular Cardiovascular exam: Present regular rate, normal rhythm and normal heart sounds Abdominal Exam Abdominal exam: Present soft and normal bowel sounds; Absent distention or tenderness Neurological Exam Neurological exam: Present alert, oriented X3 and normal gait Medical Decision Making Elmer Inquiry Pt receiving controlled substance: No Elmer was queried for this patient: No Vital Signs: 12/08/23 09:45 Temperature 98.2 F Temperature Source Oral Pulse Rate [Left Brachial] 88 Respiratory Rate 18 Blood Pressure [Left Arm] 131/72 Blood Pressure Mean [Left Arm] 91 Blood Pressure Source [Left Arm] Automatic Cuff Blood Pressure Position [Left Arm] Sitting 02 Sat by Pulse Oximetry 98 Oxygen Delivery Method Room Air Lab Data Lab results reviewed: Yes I reviewed the patient's lab results.
[2023-12-08 10:10] LABS: UTC Influenza A Antigen Negative (Negative); UTC Influenza B Antigen Negative (Negative)
[2023-12-08 10:23] VITALS: BP 131/72; PULSE 88; RESP 18; TEMP 36.8; O2SAT 98
== END 2023-12-08 10:25 | disposition home or self-care (01) ==
PROVIDERS: Emergency Provider Nurse Practitioner; PCP Internal Medicine Adolescent Medicine
DX: J01.90 Acute sinusitis, unspecified (principal); R09.81 Nasal congestion; R68.83 Chills (without fever); M79.18 Myalgia, other site; K21.9 Gastro-esophageal reflux disease without esophagitis; Z87.891 Personal history of nicotine dependence
CPT/HCPCS: 87804; 99212; 99214; G0463

== ENCOUNTER 2024-02-04 16:08 | Emergency (ER) | payer BC, SELFPAY ==
[2024-02-04 16:10] VITALS: BP 121/65; PULSE 91; RESP 18; TEMP 37; O2SAT 97; BMI 26.1
--- NOTE | 2024-02-04 16:32 | EXP.UTC ---
Discharge Plan Disposition Patient Disposition: Home, Self-Care Condition: Good Prescriptions Prescriptions: New amoxicillin [amoxicillin] 875 mg tablet 875 mg PO Q12H Qty: 20 0RF kkpigeugsrnruyc-cqovjczie-HU [Bromfed DM] 2-30-10 mg/5 mL Syrup 5 ml PO Q6H PRN (Reason: Cough) Qty: 240 0RF methylprednisolone 4 mg Tablets,Dose Pack 4 mg PO DIRECTED 6 Days Qty: 21 0RF Rx Instructions: Take 1 pack as directed for 6 days No Action buspirone 10 mg tablet 10 mg PO BID Qty: 60 1RF Referrals Follow up/Referrals: Gilberto Camacho MD [Primary Care Provider] - See instructions Activity Restrictions/Add. Instructions Additional Instructions/Restrictions: Drink plenty of fluids. Take tylenol or ibuprofen for pain or fever. Take the medications as directed. Follow up with your regular doctor. GO TO THE ER FOR ANY WORSENING SYMPTOMS Clinical Impressions Clinical Impression: Pharyngitis Stand Alone Forms Stand Alone Forms: Work/School Release Instructions Patient Instructions: Sore Throat, DI for Pharyngitis/Tonsillopharyngitis -- Adult Discharge ED Provider: Amauri Quispe [facility] [place] General Stated complaint: body aches, fever, sore throat,WILLETT Mode of Arrival: Ambulatory Source of Information: Patient Limitations: No Limitations Time Seen by Provider: 02/04/24 16:32 Description of Symptoms (Recalled from Triage Doc. by RN): Pt's symptoms are body aches, WILLETT, and sore throat. Pt's sibling has strep. HEENT Symptoms (Recalled from RN notes): Yes Resp Symptoms (Recalled from RN notes): No Skin Symptoms (Recalled from RN notes): No MS Symptoms (Recalled from RN notes): No Functional Status (Recalled from RN notes): n/a History of Present Illness Provider Complaint: He states that he has had sore throat, cough, sinus congestion and malaise for the past 1 day. Related Data Previous Rx's Medication Instructions Recorded buspirone 10 mg tablet 10 mg PO BID #60 tabs 01/03/24 amoxicillin 875 mg tablet 875 mg PO Q12H #20 tabs 02/04/24 saoktklvjlurccs-xmzlvxgceafzvrf-AC 5 ml PO Q6H PRN Cough #240 mL 02/04/24 2 mg-30 mg-10 mg/5 mL oral syrup (Bromfed DM) methylprednisolone 4 mg tablets in 4 mg PO DIRECTED 6 days #21 tabs 02/04/24 a dose pack Allergies Allergy/AdvReac Type Severity Reaction Status Date / Time No Known Allergies Allergy Verified 02/04/24 16:24 Worker's Comp Is this a Worker's Comp case?: No [facility] Disclaimer: The information contained in this section may have been updated after the patient was seen, as this information can be updated by other users. Medical History (Updated 02/04/24 @ 16:45 by Amauri Quispe APRN) Abnormal electrocardiography Chest pain Dyspnea Gastroesophageal reflux disease Generalized anxiety disorder Knot in throat Surgical History H/O wisdom tooth extraction Social History Smoking Status: Former smoker tobacco type: e-cigarettes second hand exposure: No alcohol intake: current counseling given: No substance use type: marijuana counseling given: No current occupational status: employed Travel in the last 8 weeks: None adopted: No caregiver/support person: No foster care: No household members: friend(s) housing: house lives independently: Yes marital status: single number of children: 0 number of grandchildren: 0 education level: college current occupation: [email or web address] current occupational exposures/hazards: No pets and animals: Yes (2 cats; Tere and Lalo) pets and animals: cat(s) caffeine: Yes physical activity: none working smoke detector in home: Yes fire extinguisher in home: No carbon monox detector in home: Yes firearms in home: No do you feel safe at home: Yes victim of physical abuse: No victim of emotional abuse: No victim of sexual abuse: No would you like helpful sources: No ROS Obtained: Yes All systems reviewed & no additional complaints except as documented Constitutional Constitutional: Reports chills and Reports fever(s) Eyes Eyes: Denies eye discharge ENT Ears, Nose, Mouth, and Throat: Reports as per HPI Cardiovascular Cardiovascular: Denies chest pain Respiratory Respiratory: Denies chest congestion and Reports cough Gastrointestinal Gastrointestingal: Reports nausea; Denies abdominal pain, constipation, cramping, diarrhea or vomiting Musculoskeletal Musculoskeletal: Denies arthralgias Integumentary/Breasts Skin/Breast: Denies rash Neurologic Neurologic: Denies paresthesias Physical Exam General General appearance: alert and in no apparent distress Head Head exam: atraumatic, normocephalic and normal inspection Eye Eye exam: Present normal appearance, PERRL and EOMI ENT ENT exam: Present mucous membranes moist and normal external ear exam Expanded ENT Exam TM/Canal exam: Bilateral TM: erythema and bulging Nose exam: Absent sinus tenderness Mouth exam: Present normal external inspection; Absent drooling Teeth exam: Present normal inspection Throat exam: Present tonsillar erythema, tonsillomegaly and tonsillar exudate Neck Neck exam: Present normal inspection, full ROM and trachea midline; Absent tenderness, meningismus or lymphadenopathy Chest Chest inspection: Present normal inspection and symmetric chest wall rise; Absent tenderness Respiratory Respiratory exam: Present normal lung sounds bilaterally; Absent respiratory distress, wheezes, stridor or accessory muscle use Cardiovascular Cardiovascular exam: Present regular rate and normal rhythm; Absent systolic murmur or diastolic murmur Abdominal Exam Abdominal exam: Present soft and normal bowel sounds; Absent distention, tenderness, guarding, rebound or rigidity Extremities Exam Extremities exam: Present normal inspection and normal capillary refill; Absent calf tenderness Back Exam Back exam: Present normal inspection and full ROM; Absent tenderness, CVA tenderness (R) or CVA tenderness (L) Neurological Exam Neurological exam: Present alert, oriented X3 and CN II-XII intact Psychiatric Psychiatric exam: Present normal affect and normal mood Skin Skin exam: Present warm, dry, intact and normal color Medical Decision Making Medical Records Medical records reviewed: No I reviewed the patient's medical records. Elmer Inquiry Pt receiving controlled substance: No Vital Signs: 02/04/24 16:10 Temperature 98.6 F Temperature Source Oral Pulse Rate [Right Radial] 91 H Respiratory Rate 18 Blood Pressure [Right Arm] 121/65 Blood Pressure Mean [Right Arm] 83 Blood Pressure Source [Right Arm] Automatic Cuff Blood Pressure Position [Right Arm] Sitting 02 Sat by Pulse Oximetry 97 Oxygen Delivery Method Room Air Lab Data Lab results reviewed: Yes I reviewed the patient's lab results.
[2024-02-04 16:48] LABS: UTC Strep Screen (Rapid) Negative (Negative)
[2024-02-04 16:49] LABS: UTC Influenza A Antigen Negative (Negative); UTC Influenza B Antigen Negative (Negative)
[2024-02-04 16:55] VITALS: BP 121/65; PULSE 91; RESP 18; TEMP 37; O2SAT 97
[2024-02-04 17:01] LABS: Coronavirus 19, PCR Not Detected (NotDetected); Influenza A, PCR Not Detected (NotDetected); Influenza B, PCR Not Detected (NotDetected)
== END 2024-02-04 16:55 | disposition home or self-care (01) ==
PROVIDERS: Emergency Provider Nurse Practitioner Family; PCP Internal Medicine Adolescent Medicine
DX: J02.9 Acute pharyngitis, unspecified (principal); R50.9 Fever, unspecified; R05.9 Cough, unspecified; R09.81 Nasal congestion; R53.81 Other malaise
CPT/HCPCS: 87636; 87804; 87880; 99212; 99214; G0463

== ENCOUNTER 2024-08-22 09:20 | Emergency (ER) | payer BC, SELFPAY ==
[2024-08-22 09:33] VITALS: BP 125/41; PULSE 82; RESP 18; TEMP 36.9; O2SAT 97; BMI 23.4
--- NOTE | 2024-08-22 09:46 | EXP.UTC ---
Discharge Plan Disposition Patient Disposition: Home, Self-Care Condition: Good Prescriptions Prescriptions: New ondansetron 4 mg Tablet,Disintegrating 4 mg PO Q8H PRN (Reason: Nausea) Qty: 12 0RF ibuprofen 600 mg tablet 600 mg PO Q6HP PRN (Reason: Mild Pain) Qty: 30 0RF No Action buspirone 10 mg tablet 10 mg PO BID Qty: 60 1RF amoxicillin [amoxicillin] 875 mg tablet 875 mg PO Q12H Qty: 20 0RF waojbhcvbrrgjdn-kykyplyzh-QA [Bromfed DM] 2-30-10 mg/5 mL Syrup 5 ml PO Q6H PRN (Reason: Cough) Qty: 240 0RF methylprednisolone 4 mg Tablets,Dose Pack 4 mg PO DIRECTED 6 Days Qty: 21 0RF Rx Instructions: Take 1 pack as directed for 6 days Referrals Follow up/Referrals: Gilberto Camacho MD [Primary Care Provider] - See instructions Activity Restrictions/Add. Instructions Additional Instructions/Restrictions: Drink plenty of fluids. Take tylenol or ibuprofen for pain or fever. Take the medications as directed. Follow up with your regular doctor. GO TO THE ER FOR ANY WORSENING SYMPTOMS Clinical Impressions Clinical Impression: Viral syndrome Instructions Patient Instructions: DI for Viral Syndrome Print Language Print Language: Trinidadian Discharge ED Provider: Amauri Quispe [facility] General Stated complaint: all over body aches, red eyes and stingy Mode of Arrival: Ambulatory Source of Information: Patient Limitations: No Limitations Time Seen by Provider: 08/22/24 09:46 Description of Symptoms (Recalled from Triage Doc. by RN): Complaint of body aches and chills. Also complaint of headaches. HEENT Symptoms (Recalled from RN notes): Yes Resp Symptoms (Recalled from RN notes): No Skin Symptoms (Recalled from RN notes): No MS Symptoms (Recalled from RN notes): No Functional Status (Recalled from RN notes): wnl History of Present Illness Provider Complaint: He states that for the past 1 day he has had scratchy throat, chills, body aches and malaise. He has had nausea and diarrhea also. Related Data Previous Rx's ?Medication ?Instructions ?Recorded buspirone 10 mg tablet 10 mg PO BID #60 tabs 01/03/24 amoxicillin 875 mg tablet 875 mg PO Q12H #20 tabs 03/05/24 avguavtjtlceqqu-sypjzjorpxjdois-GS 5 ml PO Q6H PRN Cough #240 mL 02/04/24 2 mg-30 mg-10 mg/5 mL oral syrup (Bromfed DM) methylprednisolone 4 mg tablets in 4 mg PO DIRECTED 6 days #21 tabs 02/04/24 a dose pack ibuprofen 600 mg tablet 600 mg PO Q6HP PRN Mild Pain #30 08/22/24 tabs ondansetron 4 mg disintegrating 4 mg PO Q8H PRN Nausea #12 tabs 08/22/24 tablet Allergies Allergy/AdvReac Type Severity Reaction Status Date / Time No Known Allergies Allergy Verified 02/04/24 16:24 Worker's Comp Is this a Worker's Comp case?: No [facility] Disclaimer: The information contained in this section may have been updated after the patient was seen, as this information can be updated by other users. Medical History (Updated 08/22/24 @ 10:21 by Amauri Quispe APRN) Generalized anxiety disorder Gastroesophageal reflux disease Knot in throat Abnormal electrocardiography Dyspnea Chest pain Surgical History H/O wisdom tooth extraction Social History Smoking Status: Former smoker tobacco type: e-cigarettes second hand exposure: No alcohol intake: current alcohol intake frequency: holidays/special occasions only counseling given: No substance use type: marijuana counseling given: No current occupational status: employed Travel in the last 8 weeks: None adopted: No caregiver/support person: No foster care: No household members: friend(s) housing: house lives independently: Yes marital status: single number of children: 0 number of grandchildren: 0 education level: college current occupation: [employer] current occupational exposures/hazards: No pets and animals: Yes (2 cats; Tere and Lalo) pets and animals: cat(s) caffeine: Yes physical activity: none working smoke detector in home: Yes fire extinguisher in home: No carbon monox detector in home: Yes firearms in home: No do you feel safe at home: Yes victim of physical abuse: No victim of emotional abuse: No victim of sexual abuse: No would you like helpful sources: No ROS Obtained: Yes All systems reviewed & no additional complaints except as documented Constitutional Constitutional: Reports chills and Reports fever(s) Eyes Eyes: Denies eye discharge ENT Ears, Nose, Mouth, and Throat: Reports as per HPI Cardiovascular Cardiovascular: Denies chest pain Respiratory Respiratory: Denies chest congestion and Reports cough Gastrointestinal Gastrointestingal: Reports nausea; Denies abdominal pain, constipation, cramping, diarrhea or vomiting Musculoskeletal Musculoskeletal: Denies arthralgias Integumentary/Breasts Skin/Breast: Denies rash Neurologic Neurologic: Denies paresthesias Physical Exam General General appearance: alert and in no apparent distress Head Head exam: atraumatic, normocephalic and normal inspection Eye Eye exam: Present normal appearance, PERRL and EOMI ENT ENT exam: Present normal exam, normal oropharynx, mucous membranes moist, TM's normal bilaterally and normal external ear exam Neck Neck exam: Present normal inspection, full ROM and trachea midline; Absent meningismus or lymphadenopathy Chest Chest inspection: Present normal inspection and symmetric chest wall rise; Absent tenderness Respiratory Respiratory exam: Present normal lung sounds bilaterally; Absent respiratory distress Cardiovascular Cardiovascular exam: Present regular rate and normal rhythm; Absent JVD Abdominal Exam Abdominal exam: Present soft and normal bowel sounds; Absent distention, tenderness or guarding Extremities Exam Extremities exam: Present normal inspection, full ROM and normal capillary refill; Absent calf tenderness Back Exam Back exam: Present normal inspection; Absent tenderness Neurological Exam Neurological exam: Present alert and oriented X3 Psychiatric Psychiatric exam: Present normal affect and normal mood Skin Skin exam: Present warm, dry, intact and normal color Lymphatic Lymphatic Findings: no adenopathy Medical Decision Making Medical Records Medical records reviewed: No I reviewed the patient's medical records. Screening: Per USPSTF and CDC recommendations, given the prevalence of disease in our region, it is our hospital?s policy to screen for HIV and viral Hepatitis for all patients aged 18 and over and those with ongoing risk factors. Elmer Inquiry Pt receiving controlled substance: No Vital Signs: 08/22/24 09:33 Temperature 98.5 F Temperature Source Oral Pulse Rate [Radial] 82 Respiratory Rate 18 Blood Pressure [Right Arm] 125/41 L Blood Pressure Mean [Right Arm] 69 Blood Pressure Source [Right Arm] Automatic Cuff Blood Pressure Position [Right Arm] Sitting 02 Sat by Pulse Oximetry 97 Oxygen Delivery Method Room Air Lab Data Lab results reviewed: Yes I reviewed the patient's lab results. Orders (Tests/Meds): ORDERS Category Date Time Status Covid-19 Nasal PCR ([facility]) Routine Lab 08/22/24 09:13 Received
[2024-08-22 10:37] LABS: UTC Strep Screen (Rapid) Negative (Negative)
[2024-08-22 10:47] VITALS: BP 125/41; PULSE 82; RESP 18; TEMP 36.9; O2SAT 97
== END 2024-08-22 10:48 | disposition home or self-care (01) ==
PROVIDERS: Emergency Provider Nurse Practitioner Family; PCP Internal Medicine Adolescent Medicine
DX: R51.9 Headache, unspecified (principal); R53.81 Other malaise; R11.0 Nausea; R19.7 Diarrhea, unspecified; J02.9 Acute pharyngitis, unspecified; B34.9 Viral infection, unspecified; K21.9 Gastro-esophageal reflux disease without esophagitis; Z87.891 Personal history of nicotine dependence; R50.9 Fever, unspecified
CPT/HCPCS: 87635; 87880; 99212; 99214; G0463

== ENCOUNTER 2024-09-26 09:02 | Emergency (ER) | payer BC, SELFPAY ==
[2024-09-26 09:10] VITALS: BP 130/97; PULSE 80; RESP 20; TEMP 36.5; O2SAT 100; BMI 23.6
--- NOTE | 2024-09-26 09:19 | ED_ITS ---
Discharge Plan Disposition Patient Disposition: Home, Self-Care Condition: Good Referrals Follow up/Referrals: Gilberto Camacho MD [Primary Care Provider] - See instructions Polly Daigle MD [Referring] - See instructions Activity Restrictions/Add. Instructions Additional Instructions/Restrictions: Warm compresses to the area may help with pain and discomfort * Drink fluids:?Drink plenty of fluids to avoid dehydration? * Take pain relievers:?Take riao-gxa-dvxbpac pain relievers like ibuprofen, naproxen, or acetaminophen? * Follow up with your Family Doctor if needed or if any signs of infection If area does not go away follow up with Dermatology Straight to ER if any life threatening symptoms Clinical Impressions Clinical Impression: Swelling of lymph node Instructions Patient Instructions: Ibuprofen Print Language Print Language: Wolof Discharge ED Provider: Maria Del Rosario Baird [facility] [place] General Stated complaint: bump under arm pit Mode of Arrival: Ambulatory Source of Information: Patient Limitations: No Limitations Time Seen by Provider: 09/26/24 09:20 Description of Symptoms (Recalled from Triage Doc. by RN): PATIENT C/O BUMP TO LEFT AXILLA AREA X 4 DAYS HEENT Symptoms (Recalled from RN notes): No Resp Symptoms (Recalled from RN notes): No Skin Symptoms (Recalled from RN notes): No MS Symptoms (Recalled from RN notes): No Functional Status (Recalled from RN notes): WNL History of Present Illness Provider Complaint: Patient state that he noticed a swollen tender lump under his left armpit area that was sore and tender to the touch initially States that now it appears that it has gone down and no longer as tender to the touch but he wanted to get it looked at Related Data Home Medications ?Medication ?Instructions ?Recorded ?Confirmed No Known Home Medications 09/26/24 09/26/24 Allergies Allergy/AdvReac Type Severity Reaction Status Date / Time No Known Allergies Allergy Verified 02/04/24 16:24 Worker's Comp Is this a Worker's Comp case?: No [facility] Disclaimer: The information contained in this section may have been updated after the patient was seen, as this information can be updated by other users. Medical History (Updated 09/26/24 @ 09:26 by Maria Del Rosario Baird APRN) Generalized anxiety disorder Gastroesophageal reflux disease Knot in throat Abnormal electrocardiography Dyspnea Chest pain Surgical History H/O wisdom tooth extraction Social History Smoking Status: Former smoker tobacco type: e-cigarettes second hand exposure: No alcohol intake: current alcohol intake frequency: holidays/special occasions only counseling given: No substance use type: marijuana counseling given: No current occupational status: employed Travel in the last 8 weeks: None adopted: No caregiver/support person: No foster care: No household members: friend(s) housing: house lives independently: Yes marital status: single number of children: 0 number of grandchildren: 0 education level: college current occupation: [employer] current occupational exposures/hazards: No pets and animals: Yes (2 cats; Tere and Lalo) pets and animals: cat(s) caffeine: Yes physical activity: none working smoke detector in home: Yes fire extinguisher in home: No carbon monox detector in home: Yes firearms in home: No do you feel safe at home: Yes victim of physical abuse: No victim of emotional abuse: No victim of sexual abuse: No would you like helpful sources: No ROS Obtained: Yes All systems reviewed & no additional complaints except as documented and Yes Systems reviewed as appropriate & no additional complaints except as documented Constitutional Constitutional: Reports system reviewed and no additional complaints, except as documented and Reports as per HPI Eyes Eyes: Reports system reviewed and no additional complaints, except as documented and Reports as per HPI ENT Ears, Nose, Mouth, and Throat: Reports system reviewed and no additional complaints, except as documented and Reports as per HPI Cardiovascular Cardiovascular: Reports system reviewed and no additional complaints, except as documented and Reports as per HPI Respiratory Respiratory: Reports system reviewed and no additional complaints, except as documented and Reports as per HPI Integumentary/Breasts Skin/Breast: Reports system reviewed and no additional complaints, except as documented, Reports as per HPI and Reports other (lump under left arm pit) Physical Exam General General appearance: alert and in no apparent distress ENT ENT exam: Present mucous membranes moist Respiratory Respiratory exam: Present normal lung sounds bilaterally; Absent respiratory distress or wheezes Cardiovascular Cardiovascular exam: Present regular rate, normal rhythm and normal heart sounds Extremities Exam Extremities exam: Present normal inspection, full ROM and normal capillary refill; Absent tenderness Neurological Exam Neurological exam: Present alert, oriented X3 and normal gait Skin Skin exam: Present other (small round movable nodule noted appears like enlarged lymph node, no longer having tenderness, reports feels like it is going down, no redness or signs of infection at this time) Medical Decision Making Medical Records Screening: Per USPSTF and CDC recommendations, given the prevalence of disease in our region, it is our hospital?s policy to screen for HIV and viral Hepatitis for all patients aged 18 and over and those with ongoing risk factors. Elmer Inquiry Pt receiving controlled substance: No Elmer was queried for this patient: No Vital Signs: 09/26/24 09:10 Temperature 97.7 F Temperature Source Oral Pulse Rate [Left Brachial] 80 Respiratory Rate 20 Blood Pressure [Left Arm] 130/97 H Blood Pressure Mean [Left Arm] 108 Blood Pressure Source [Left Arm] Automatic Cuff Blood Pressure Position [Left Arm] Sitting 02 Sat by Pulse Oximetry 100 Oxygen Delivery Method Room Air
[2024-09-26 09:27] VITALS: BP 130/97; PULSE 80; RESP 20; TEMP 36.5; O2SAT 100
== END 2024-09-26 09:30 | disposition home or self-care (01) ==
PROVIDERS: Emergency Provider Nurse Practitioner; PCP Internal Medicine Adolescent Medicine
DX: R59.9 Enlarged lymph nodes, unspecified (principal)
CPT/HCPCS: 99212; G0381

== ENCOUNTER 2025-11-09 14:01 | Outpatient (CLI) | payer BC, SELFPAY ==
--- NOTE | 2025-11-09 14:04 | US_ITS ---
FINAL REPORT TECHNIQUE: Limited sonographic images of the thyroid were obtained. CLINICAL HISTORY: LOW SERUM TSH, GLOBUS SENSATION FINDINGS: The right lobe of the thyroid measures 4.8 x 1.6 x 1.3 cm. No nodules are identified. The left lobe of the thyroid measures 4.7 x 1.2 x 1.5 cm. No nodules are identified. The isthmus measures 3 mm. IMPRESSION: Unremarkable thyroid ultrasound. Reviewed, Interpreted and Dictated by Nixon Giang MD Transcribed by Lori Palomo Authenticated and [facility]
== END 2025-11-09 23:59 | disposition home or self-care (01) ==
LOC: RAD 14:01
PROVIDERS: PCP Internal Medicine Adolescent Medicine
DX: R09.A2 Foreign body sensation, throat (principal); R79.89 Other specified abnormal findings of blood chemistry
CPT/HCPCS: 76536